=== PATIENT | female | born 1960 | race Caucasian/White ===

== ENCOUNTER 2023-01-05 10:51 | Emergency (ER) | payer MEDICAID, MEDICARE ==
[2023-01-05] MEDS ORDERED: Albuterol/Ipratropium 3.0-0.5 MG/3 ML Neb Soln NEB ONE (11:06)
[2023-01-05] MEDS ORDERED: Azithromycin 500 MG in Sodium Chloride 0.9% 250 ML IV SCH (11:15)
[2023-01-05] MEDS ORDERED: cefTRIAXone 2 GM in Sodium Chloride 0.9% 50 ML IV SCH (11:15)
[2023-01-05] MEDS ORDERED: Lactated Ringers 1,000 ML IV SCH (11:15)
[2023-01-05 11:36] LABS: BASE EXCESS ARTERIAL 4.2 mm/L; BICARBONATE,ARTERIAL 35.5 mmol/L (22.0-26.0); CARBOXYHEMOGLOBIN 5.1 % (0.0-1.6); METHEMOGLOBIN 0.8 %; OXYHEMOGLOBIN 91.3 %; TOTAL HEMOGLOBIN 16.6 g/dL (12.0-16.0)
[2023-01-05 11:38] LABS: BASOPHILS ABSOLUTE AUTO 0.08 K/uL (0.00-0.10); BASOPHILS PERCENT AUTO 0.4 % (0.1-1.3); HEMATOCRIT 50.3 % (34.3-46.0); HEMOGLOBIN 16.1 g/dL (11.2-15.5); IMMATURE GRAN ABSOLUTE AUTO 0.32 K/uL (0.00-0.23); IMMATURE GRAN PERCENT AUTO 1.5 % (0.0-0.7); LYMPHOCYTES ABSOLUTE AUTO 2.02 K/uL (0.8-3.3); LYMPHOCYTES PERCENT AUTO 9.3 % (11.4-47.7); MEAN CORPUSCULAR HEMOGLOBIN 30.7 pg (31.6-35.5); MONOCYTES ABSOLUTE AUTO 1.69 K/uL (0.20-0.90); MONOCYTES PERCENT AUTO 7.8 % (3.3-12.6); NEUTROPHILS ABSOLUTE AUTO 17.58 K/uL (1.0-7.6); PLATELET COUNT,PLT 287 K/uL (130-375); RED BLOOD CELL COUNT 5.24 M/uL (3.77-5.24); WHITE BLOOD CELL COUNT,WBC 21.7 K/uL (3.2-11.0)
[2023-01-05 11:41] LABS: PCO2 ARTERIAL 85.9 mmHg (35.0-42.0)
[2023-01-05 11:43] LABS: EOSINOPHILS ABSOLUTE AUTO 0.01 K/uL (0.00-0.40)
[2023-01-05 12:04] LABS: A/G RATIO 0.8 (1.2-2.2); ALANINE AMINOTRANSFERASE,ALT 42 U/L (12-78); ALBUMIN 3.2 g/dL (3.4-5.0); ALKALINE PHOSPHATASE 126 U/L (46-116); ASPARTATE AMNIOTRANSFERASE,AST 23 U/L (15-37); BILIRUBIN TOTAL 0.4 mg/dL (0.2-1.0); BLOOD UREA NITROGEN,BUN 24 mg/dL (7-18); C-REACTIVE PROTEIN 7.76 mg/dL (0.0-0.3); CALCIUM 8.3 mg/dL (8.5-10.1); CARBON DIOXIDE,CO2 35 mmol/L (21-32); CHLORIDE,CL 93 mmol/L (100-108); EST CRCL DRUG DOSING (CG) 45.54 mL/min; ESTIMATED GFR 63 mL/min (>60); GLUCOSE RANDOM 130 mg/dL (74-106); LACTIC ACID 0.9 mmol/L (0.4-2.0); PROTEIN TOTAL,TP 7.3 g/dL (6.4-8.2); SODIUM,NA 133 mmol/L (140-148)
[2023-01-05 12:24] LABS: CORONAVIRUS COVID-19 NAA NEGATIVE (NEGATIVE); INFLUENZA A NAA NEGATIVE (NEGATIVE); INFLUENZA B NAA NEGATIVE (NEGATIVE); RESPIRATORY SYNCYTIAL VIR NAA NEGATIVE (NEGATIVE)
[2023-01-05] MEDS ORDERED: Nitroglycerin 0.4 MG Tab.SL SL ONE (13:17)
[2023-01-05 14:06] LABS: BASE EXCESS ARTERIAL -3.7 mm/L; BICARBONATE,ARTERIAL 38.5 mmol/L (22.0-26.0); CARBOXYHEMOGLOBIN 3.4 % (0.0-1.6); METHEMOGLOBIN 0.9 %; O2 SATURATION ARTERIAL 79.7 % (95.0-98.0); OXYHEMOGLOBIN 76.3 %; PO2 ARTERIAL 76.6 mmHg (75.0-100.0); TOTAL HEMOGLOBIN 16.6 g/dL (12.0-16.0)
[2023-01-05] MEDS ORDERED: Succinylcholine 200 MG/10 ML MDV ONE (14:10)
[2023-01-05] MEDS ORDERED: propofoL 100 ML IV SCH (14:30)
[2023-01-05] MEDS ORDERED: Sodium Chloride 0.9% 1,000 ML IV SCH (14:45)
== END 2023-01-05 16:15 ==
LOC: JP.ED 10:51
DX: J96.90 Respiratory failure, unspecified, unspecified whether with hypoxia or hypercapnia (principal); I50.9 Heart failure, unspecified; Z20.822 Contact with and (suspected) exposure to COVID-19
CPT/HCPCS: 0241U; 31500; 36415; 36600; 43752; 51702; 71045; 71250; 80053; 82803; 83605; 83880; 84145; 84484; 85025; 86140; 87040; 87070; 87077; 87186; 87205; 94640; 96365; 96367; 99291; A9270; J0456; J0696; J2704; J3490; J7030; J7050; J7120; J0330; J7620